=== PATIENT | female | born 1990 | race Caucasian/White ===

== ENCOUNTER → 2021-03-12 09:04 | Outpatient (BNVA) | payer OTHER, SELFPAY | PROVIDERS: PCP Internal Medicine; Visit Provider Obstetrics & Gynecology ==

== ENCOUNTER 2021-09-01 14:00 | Outpatient (REF) | payer OTHER, SELFPAY ==
[2021-09-01 15:02] LABS: Influenza A PCR POSITIVE (Negative); Influenza B PCR NEGATIVE (Negative); Resp Syncy Virus RNA Qual PCR NEGATIVE (Negative); SARS COV2 PCR INHOUSE NEGATIVE (Negative)
== END 2021-09-01 14:01 | disposition home or self-care (01) ==
LOC: HO.LNP 14:00
PROVIDERS: Visit Provider Physician Assistant
DX: Z20.822 Contact with and (suspected) exposure to COVID-19 (principal); R05.9 Cough, unspecified; J32.9 Chronic sinusitis, unspecified
CPT/HCPCS: 0241U

== ENCOUNTER 2022-05-18 09:05 | Outpatient (REF) | payer OTHER, SELFPAY ==
[2022-05-20 16:57] LABS: HPV mRNA E6/E7 rflx Not Detected (Not Detected)
== END 2022-05-18 09:06 | disposition home or self-care (01) ==
LOC: HO.LNP 09:05
PROVIDERS: Visit Provider Obstetrics & Gynecology
DX: Z01.419 Encounter for gynecological examination (general) (routine) without abnormal findings (principal); Z11.51 Encounter for screening for human papillomavirus (HPV)
CPT/HCPCS: 87624; 88142

== ENCOUNTER 2022-06-29 09:04 | Outpatient (REF) | payer OTHER, SELFPAY ==
[2022-06-29 09:18] LABS: MANUAL DIFF FLAG NO
[2022-06-29 09:46] LABS: Basophils Absolute Auto 0.1 X10*3/uL (0.0-0.2); Basophils Percent Auto 0.8 % (0-2); Eosinophils Absolute Auto 0.1 X10*3/uL (0.0-0.4); Eosinophils Percent Auto 1.5 % (0-4); Hematocrit 44.6 % (37.0-47.0); Hemoglobin 14.5 g/dl (12.0-16.0); Imm Gran Abs Auto 0.02 X10*3/uL (0.00-0.03); Imm Gran Pct Auto 0.3 % (0.0-0.4); Lymphocytes Absolute Auto 2.2 X10*3/uL (1.2-4.9); Lymphocytes Percent Auto 28.1 % (20-40); Mean Corpuscular HGB Conc 32.5 g/dl (31.0-35.0); Mean Corpuscular Hemoglobin 30.1 pg (27.0-33.0); Mean Corpuscular Volume 92.5 fL (80.0-98.0); Mean Platelet Volume 10.3 fL (9.4-12.3); Monocytes Absolute Auto 0.6 X10*3/uL (0.1-1.2); Monocytes Percent Auto 7.5 % (2-11); Neutrophils Absolute Auto 4.8 x10*3/uL (2.0-8.3); Neutrophils Percent Auto 61.8 % (45-73); Platelet Count 263 X10*3/uL (160-400); Red Blood Count 4.82 X10*6/uL (4.20-5.50); Red Cell Distribution Width 12.7 % (11.0-16.0); White Blood Count 7.8 X10*3/uL (4.8-10.8)
[2022-06-29 10:15] LABS: Appearance Urine Turbid; Color Urine Yellow; Glucose Urine UA Negative (Negative); Leukocyte Esterase Urine Trace (Negative); Nitrite Urine Negative (Negative); Specific Gravity - Urine 1.025 (1.005-1.025); UMIC TRIGGER UACC YES; Urine Blood Negative (Negative); Urine Ketones Negative (Negative); Urine Protein Trace mg/dL (Neg-Trace)
[2022-06-29 10:29] LABS: Alanine Aminotransferase 7 U/L (0-31); Albumin Level 4.1 g/dL (3.5-5.0); Alkaline Phosphatase 63 U/L (39-117); Anion Gap 13 (12-20); Aspartate Amino Transferase 11 U/L (5-31); Bilirubin Total 0.7 mg/dL (0.0-1.0); Blood Urea Nitrogen 10 mg/dL (9-16); Calcium 9.3 mg/dL (8.4-10.2); Carbon Dioxide 27 mmol/L (22-29); Chloride 103 mmol/L (96-108); Cholesterol 240 mg/dL; Estimated Glomerular Filt Rate > 60; Glucose Fasting 81 mg/dL (60-99); HDL Cholesterol 52 mg/dL; LDL Cholesterol Calculated 163 mg/dl; Potassium 4.3 mmol/L (3.3-5.1); Sodium 139 mmol/L (135-145); Total Protein 6.8 g/dL (6.5-8.0); Triglycerides 129 mg/dL; Troponin-I High Sensitivity < 3.5 ng/L (<3.5-17.0)
[2022-06-29 10:34] LABS: Bacteria Urine 3+ (None Seen); Hyaline Casts Urine 0-2 /LPF (0-2); RBC Urine 0-2 /HPF (0-2); Squamous Epithelial Cell Urine >20 /HPF (0-2); WBC Urine 0-5 /HPF (0-5)
[2022-06-29 10:35] LABS: TSH reflex Free T4 1.41 uIU/mL (0.32-4.0); Vitamin D 25-OH Total 8.2 ng/mL (>30)
== END 2022-06-29 09:05 | disposition home or self-care (01) ==
LOC: HO.LAB 09:04
PROVIDERS: PCP Internal Medicine; Visit Provider Internal Medicine
DX: Z00.00 Encounter for general adult medical examination without abnormal findings (principal); R07.9 Chest pain, unspecified; E78.00 Pure hypercholesterolemia, unspecified; E55.9 Vitamin D deficiency, unspecified
CPT/HCPCS: 36415; 80053; 80061; 81001; 81003; 82306; 84443; 84484; 85025

== ENCOUNTER → 2022-07-20 09:57 | Outpatient (REF) | payer OTHER, SELFPAY ==
--- NOTE | 2022-07-20 10:00 | CA_ITS ---
Acquisition Time: 2022-07-20 10:01:07 Total Exercise Time: 00:05:04 Test Indications: CHEST PAIN Medications: CLONAZAPAM LAMOTRIGINE Protocol: CHELSIE Max HR: 166 BPM 89% of Pred: 186 BPM Max BP: 160/100 mmHG Max Work Load: 7.0 METS Exercise stress test with exercise 5 min 4 sec of Chelsie protocol, achieving 89% MPHR, with reqeust to stop due to sharp pain in left chest area, without arrythmia, with normotensive response to exercise, without EKG changes meeting criteria for ischemia. In recovery her chest discomfort gradually improved. She admits to tenderness to palpation in the area of the discomfort and increased discomfort to that area with lateral raise of left arm. Test reviewed with Dr Bradley. Referred By: Deni Goodman Overread By: NATE OWUSU
== END ==
LOC: HO.CARD 09:57
PROVIDERS: PCP Internal Medicine; Visit Provider Internal Medicine
DX: R07.9 Chest pain, unspecified (principal)
CPT/HCPCS: 93017

== ENCOUNTER 2023-07-06 08:30 | Outpatient (AMB) | payer OTHER, SELFPAY ==
--- NOTE | 2023-07-06 08:40 | MHC.OFFVIS ---
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 No complaints. Last Pap/HPV was negative in 06/01 [facility] Medical History Mixed hyperlipidemia Chronic tonsillar hypertrophy Bulimia Obesity, Class III, BMI 40-49.9 (morbid obesity) Right lower quadrant pain Bipolar depression Morbid obesity GERD (gastroesophageal reflux disease) Surgical History Tubal ligation status History of wisdom tooth extraction History of ventral hernia repair History of section Family History Father Heart failure Mother Ovarian cancer Throat cancer Maternal Grandmother Lung cancer Family/Other Substance use disorder Mental health disorder Paternal Aunt Stomach cancer Social History Household Members: Children Housing: House Alcohol intake: never Patient Tobacco Use Status: Never used Tobacco e-Cigarette/Vaping Use: Never Used Second Hand Smoke Exposure: No service: No Current occupational status: employed Current occupation: [employer] Sexual orientation: Straight/Heterosexual Gender identity: Female Cognitive needs: No Hearing needs: No Vision needs: No Female Reproductive History Menstrual Age of Menarche: 10 Total pregnancies: 4 Full term: 3 Number of Living Children: 3 Ab spontaneous: 1 Date of last pap smear: 05/18/22 Review of Systems Const All systems reviewed & are unremarkable except as noted in HPI and below Card Reports as per HPI Resp Reports as per HPI GI Reports as per HPI and Reports no additional complaints Reports as per HPI Physical Exam Vital Signs: BMI result Body Mass Index 39.6 Const General: cooperative, healthy appearing and comfortable Chest Chest palpation & inspection: normal inspection of the chest and normal palpation of entire chest wall Breast/axilla inspection: normal inspection of the breasts and normal inspection of the axillae Breast/axilla palpation: normal palpation of the breasts, normal palpation of the axillae and no axillary lymphadenopathy Resp Effort & Inspection: normal respiratory effort Auscultation: clear to auscultation bilaterally Percussion: percussion normal Cardio Palpation: normal PMI Rate: regular rate Rhythm: regular rhythm Heart sounds: no murmurs and no rubs Peripheral pulses: Peripheral pulses 2+ throughout GI Inspection: Yes normal to inspection Palpation (GI): Soft to palpation, nontender, no guarding, not rigid and No hepatosplenomegaly present Percussion: Yes normal to percussion Auscultation: normal bowel sounds Rectal Exam - Female: deferred General: Yes bladder normal to palpation External Female Exam: No lesion Speculum Exam - Vagina: normal appearance of the vagina, normal palpation, normal vaginal discharge and not erythematous Speculum Exam - Cervix: normal appearance of the cervix and normal palpation Bimanual exam- vagina & uterus: normal bimanual exam, normal palpation, uterine size normal, bladder normal to palpation, consistency normal and normal palpation Bimanual Exam- Adnexa, other: normal adnexae, no masses and no tenderness Assessment & Plan Assessment & Plan (1) Well woman exam: Code(s): Z01.419 - Encounter for gynecological examination (general) (routine) without abnormal findings Plan: Cotesting not indicated this year. Counseled the patient about the recommended dietary allowance of 1000 mg of Calcium & 600 IU of vitamin D. The patient was instructed to perform monthly self-breast exams and to schedule an annual exam in a year; All questions answered and the patient verbalized understanding. Instructed the patient to schedule annual exam in a year Coding Level of Care Code Est Pt Prev Care 18-39y(22304) Diagnoses Well woman exam Z01.419
[2023-07-06 08:43] VITALS: BP 120/70; BMI 39.6
== END 2023-07-06 09:15 | disposition home or self-care (01) ==
LOC: HO.HWS 08:30
PROVIDERS: PCP Internal Medicine; Visit Provider Obstetrics & Gynecology
DX: Z01.419 Encounter for gynecological examination (general) (routine) without abnormal findings (principal)
CPT/HCPCS: 99395

== ENCOUNTER → 2023-07-06 08:30 | Outpatient (BNVA) | payer OTHER, SELFPAY | PROVIDERS: PCP Internal Medicine; Visit Provider Obstetrics & Gynecology | DX: Z01.419 Encounter for gynecological examination (general) (routine) without abnormal findings (principal) | CPT/HCPCS: 99395 ==

== ENCOUNTER 2024-06-07 08:24 | Outpatient (REF) | payer OTHER, SELFPAY ==
[2024-06-07 11:40] LABS: Influenza A PCR NEGATIVE (Negative); Influenza B PCR POSITIVE (Negative); Resp Syncy Virus RNA Qual PCR NEGATIVE (Negative); SARS COV2 PCR INHOUSE NEGATIVE (Negative)
== END 2024-06-07 08:25 | disposition home or self-care (01) ==
LOC: HO.LNP 08:24
PROVIDERS: Physician Assistant; PCP Internal Medicine; Visit Provider Internal Medicine
DX: J11.1 Influenza due to unidentified influenza virus with other respiratory manifestations (principal)
CPT/HCPCS: 0241U; 99212

== ENCOUNTER 2024-06-07 08:24 | Outpatient (AMB) | payer OTHER, SELFPAY ==
--- NOTE | 2024-06-07 08:53 | MHC.OFFWIV ---
Intake Vital Signs 06/07/24 08:54 Weight 252 lb BP 122/90 H Blood Pressure Location Rt brachial Position Sitting Pulse 106 H Pulse Source Pulse Oximeter Temp 98.8 F Temp Source Oral Pulse Oximetry (%) 97 Oxygen Delivery Method Room Air Intake Visit Reasons: EP-flu symptoms Intake Note: Patient here for head pressure,cough,fever and chills which started last Patient Tobacco Use Status: Never used Tobacco Allergies iodine [IODINE] Allergy (Intermediate, Verified 06/07/24 08:54) HIVES Do you need a note to return to daycare/school/sports/work: Yes HPI HPI Comments History of Present Illness Details She presents to office with flu like symptoms Daughter is sick She started with symptoms on She admits to ST onset and progressed to headache, sinus pressure, running nose + ST with cough Cough produces occasional phlegm + fever this am and took ucinex for this + body aches and fatigue PFSH Medical History Mixed hyperlipidemia Chronic tonsillar hypertrophy Bulimia Obesity, Class III, BMI 40-49.9 (morbid obesity) Right lower quadrant pain Bipolar depression Morbid obesity GERD (gastroesophageal reflux disease) Surgical History Tubal ligation status History of wisdom tooth extraction History of ventral hernia repair History of section Family History Father Heart failure Mother Ovarian cancer Throat cancer Maternal Grandmother Lung cancer Family/Other Substance use disorder Mental health disorder Paternal Aunt Stomach cancer Social History (Updated 07/06/23 @ 08:48 by Anuja Haider CMA) Household Members: Children Housing: House Alcohol intake: never Patient Tobacco Use Status: Never used Tobacco e-Cigarette/Vaping Use: Never Used Second Hand Smoke Exposure: No service: No Current occupational status: employed Current occupation: [employer] Sexual orientation: Straight/Heterosexual Gender identity: Female Cognitive needs: No Hearing needs: No Vision needs: No Female Reproductive History Menstrual Age of Menarche: 10 Review of Systems Const Reports body aches, Reports fatigue, Reports fever(s) and Reports headache(s) Eyes Denies change in vision ENT Reports otalgia, Reports headache(s), Reports nasal congestion, Reports sinus pressure and Reports sore throat Card Denies chest pain, Denies syncope and Denies dyspnea Resp Reports cough and Denies dyspnea GI Denies diarrhea, Reports loose stools, Denies nausea and Denies vomiting Musc Reports myalgias Skin/Breast Denies rash Neuro Denies syncope and Reports headache(s) Endo Reports fatigue Physical Exam Vital Signs: Last Vital Signs Temp 98.8 F 06/07/24 08:54 Pulse 106 H 06/07/24 08:54 BP 122/90 H 06/07/24 08:54 Pulse Ox 97 06/07/24 08:54 Oxygen Delivery Method Room Air 06/07/24 08:54 General: Non-toxic, NAD. Speaking full sentences. Skin: Warm dry throughout Eye: EOMI HENT: Airway patent. Uvula midline. No pharyngeal erythema or edema. No RELIEF CAPTAIN. Bilateral canals clear. R TM + erythema but left TM non-erythematous, non-bulging. No TM perforation or hemotympanum noted. Respiratory: CTA bilaterally. No wheezes, rales or rhonchi Cardiac: RRR. No murmur Neurology: Alert. CN 2-12 grossly intact. No aphasia or facial droop. Gait without abnormality Psych: Good mood and affect Assessment & Plan Assessment & Plan (1) Influenza-like illness: Code(s): J11.1 - Influenza due to unidentified influenza virus with other respiratory manifestations Plan: Patient seen and evaluated. flu, rsv, covid ordered Pt taking mucinex with tylenol. Discussed Ibuprofen q8h to help with headache and body aches Increase fluids, rest, bland diet Patient gave verbal understanding and had no additional questions or concerns at time of discharge All questions answered Orders: Orders SARS-CoV2/FLU/RSV Today J11.1 - Influenza due to unidentified influenza virus with other respiratory manifestations Medications: New ibuprofen 600 mg PO Q8H PRN 14 tabs 0RF pain Coding Level of Care Code Est Pt Level 3 (94316) Diagnoses Influenza-like illness J11.1
[2024-06-07 08:54] VITALS: BP 122/90; PULSE 106; TEMP 37.1; O2SAT 97
== END 2024-06-07 09:13 | disposition home or self-care (01) ==
PROVIDERS: PCP Internal Medicine; Visit Provider Physician Assistant
DX: J11.1 Influenza due to unidentified influenza virus with other respiratory manifestations (principal)

== ENCOUNTER 2024-06-13 17:12 | Outpatient (AMB) | payer OTHER, SELFPAY ==
[2024-06-13 17:13] VITALS: BP 120/82; PULSE 73; O2SAT 99; BMI 35.2
--- NOTE | 2024-06-13 17:13 | A.OFFPC_ITS ---
Vital Signs 06/13/24 17:13 Height 5 ft 7 in Weight 224 lb 8 oz BMI 35.2 BP 120/82 Blood Pressure Location Lt brachial Position Sitting Pulse 73 Pulse Source Pulse Oximeter Pulse Oximetry (%) 99 Oxygen Delivery Method Room Air Intake Visit Reasons: CPE Life Skills Worker Required: No Accompanied by: Self / Same As Patient Allergies iodine [IODINE] Allergy (Intermediate, Verified 06/13/24 17:37) HIVES Medication List - Last Reconciled 06/13/24 by Deni Goodman MD clonazepam 1 tablet 2 to 3 times a day as needed orally; ibuprofen 600 mg PO Q8H PRN Tobacco use date assessed: 06/13/24 Dental Screening Dental Screen Date: 06/13/24 Did you have a dental visit in the last 12 months?: Yes Did you have a dental problem in the last 6 months where you did not have access to dental care?: No Was dental information given to patient?: Patient has dentist HPI CPE HPI Details Patient comes in today for her annual physical examination She has not been back in almost 2 years - was last seen by me on 06/26/2022 Patient states that she feels okay and is just getting over a bout with influenza Relates that she has been experiencing symptoms of cough and congestion for a couple of weeks now and went to the walk-in clinic for evaluation last week and tested positive for influenza B She was negative for COVID and RSV Patient states that she has just been taking OTC cough/cold meds and Ibuprofen PRN for symptomatic relief and that her respiratory symptoms have been slowly improving over the past few days States that she mainly needs to have her Clonazepam Rx refilled at present States that she used to see a psychiatric prescriber at [facility] for her anxiety issues but the clinic closed down their practice late last year and she is presently still trying to find a new psychiatrist or a psych prescriber that accepts her health insurance and just needs our help to refill her medication in the meantime She denies any headaches or dizziness; denies any fever or sore throat Denies any chest pains, no increased shortness of breath although she still has a lingering cough - coughs up minimal clear to whitish phlegm at times No nausea/vomiting, no abdominal pain No change in bowel habits noted She denies any acute urinary symptoms States that she is up-to-date with her annual gynecology exam and Pap smear - has appt scheduled with Dr. Escobedo early next month for her next yearly exam [facility] Medical History (Updated 06/14/24 @ 05:26 by Deni Goodman MD) Obesity (BMI 30-39.9) Mixed hyperlipidemia Chronic tonsillar hypertrophy Bulimia Obesity, Class III, BMI 40-49.9 (morbid obesity) Right lower quadrant pain Bipolar depression Morbid obesity GERD (gastroesophageal reflux disease) Surgical History Tubal ligation status History of wisdom tooth extraction History of ventral hernia repair History of section Family History Father Heart failure Mother Ovarian cancer Throat cancer Maternal Grandmother Lung cancer Family/Other Substance use disorder Mental health disorder Paternal Aunt Stomach cancer Social History Household Members: Children Housing: House Alcohol intake: never Patient Tobacco Use Status: Never used Tobacco e-Cigarette/Vaping Use: Never Used Second Hand Smoke Exposure: No service: No Current occupational status: employed Current occupation: [employer] Sexual orientation: Straight/Heterosexual Gender identity: Female Cognitive needs: No Hearing needs: No Vision needs: No Female Reproductive History Menstrual Age of Menarche: 10 Questionnaire PHQ-9 Over the last 2 weeks, how often have you been bothered by any of the following problems? 1. Little interest or pleasure in doing things: more than half the days 2. Feeling down, depressed, or hopeless: more than half the days 3. Trouble falling or staying asleep, or sleeping too much: several days 4. Feeling tired or having little energy: more than half the days 5. Poor appetite or overeating: several days 6. Feeling bad about yourself - or that you are a failure or have let yourself or your family down: several days 7. Trouble concentrating on things, such as reading the newspaper or watching television: more than half the days 8. Moving or speaking so slowly that other people could have noticed. Or the opposite - being so fidgety or restless that you have been moving around a lot more than usual: not at all 9. Thoughts that you would be better off or of hurting yourself in some way: several days Total score: 12 Depression Screening Interpretation: Positive Depression Screening Follow-up: Existing condition and In treatment Depression Screening Done: Yes 94304 - PHQ-9 Billing: Yes Source: Developed by Drs. Kee Mcintyre, Kaleigh Tripp, Luis Guillen and colleagues, with an educational jere from [employer]. Thrive Questionnaire Date Thrive assessed: 06/13/24 I am a: Patient What is your living situation today?: I have a steady place to live Within the past 12 months, did the food you bought not last and you didn't have the money to get more?: Never true Within the past 12 months, did you worry whether your food would run out before you got money to buy more?: Never true Do you have trouble paying for medicines?: No Do you have trouble getting transportation to medical appointments?: No Do you have trouble paying your heating and electricity bill?: No Do you have trouble taking care of your child, family member or friend?: No Do you have trouble with day-to-day activities such as bathing, preparing meals, shopping, managing finances, etc.?: No Are you currently unemployed and looking for a job?: Yes Are you interested in more education?: I choose not to answer this question Please select the resources that you would like help with: None Currently or been in a relationship where the following occur: I choose not to answer THRIVE Score: 0 AUDIT C Alcohol Use Questionnaire (AUDIT-C) 1. How often do you have a drink containing alcohol?: Never 3. How often do you have six or more drinks on one occasion?: Never Total Score: 0 Score Reviewed/Action Taken: Yes HUNTER-7 AMB Questionnaire HUNTER-7 Date HUNTER - 7 assessed: 06/13/24 Feeling nervous, anxious, or on edge: 3 = Nearly every day Not being able to stop or control worryin = Nearly every day Worrying too much about different things: 3 = Nearly every day Trouble relaxin = More than half the days Being so restless that it is hard to sit still: 0 = Not at all Becoming easily annoyed or irritable: 3 = Nearly every day Feeling afraid as if something awful might happen: 3 = Nearly every day Total HUNTER-7 score (0-4 normal; 5-9 mild; 10-14 moderate; 15-21 severe): 17 Source: Developed by Drs. Kee Mcintyre, Kaleigh Tripp, Luis Guillen and colleagues, with an educational jere from [employer]. Review of Systems Const Denies chills, Denies fatigue, Denies fever(s), Denies headache(s) and Denies malaise Eyes Denies blurry vision, Denies change in vision, Denies irritation and Denies itchy eyes ENT Denies dysphagia, Denies dizziness, Denies otalgia, Denies headache(s), Reports nasal congestion (mild - improving), Denies neck pain, Denies odynophagia, Denies sinus pain and Denies sore throat Card Denies chest pain, Denies rapid heart rate, Denies irregular heart rhythm, Denies palpitations and Denies dyspnea Resp Reports chest congestion (mild), Reports cough (on and off; coughs up minimal clear to whitish phlegm at times), Denies dyspnea and Denies wheezing GI Denies abdominal pain, Denies bloating, Denies constipation, Denies dysphagia, Denies heartburn, Denies diarrhea, Denies nausea, Denies odynophagia and Denies vomiting Denies hematuria, Denies urinary frequency, Denies dysuria, Denies urinary incontinence and Denies urinary urgency Musc Denies back pain, Denies arthralgias, Denies joint swelling, Denies muscle weakness and Denies neck pain Skin/Breast Denies breast pain, Denies breast mass, Denies change in pigmentation, Denies lesions, Denies rash and Denies unusual bruising Neuro Denies dizziness, Denies headache(s) and Denies paresthesias Psych Reports anxiety (Rx helping) and Denies depression Endo Denies fatigue and Denies palpitations Manuel/Lymph Denies easy bruising Aller/Immun Denies itchy eyes and Denies wheezing Physical exam (Primary Care) Vital Signs: Last Vital Signs Pulse 73 06/13/24 17:13 BP 120/82 06/13/24 17:13 Pulse Ox 99 06/13/24 17:13 Oxygen Delivery Method Room Air 06/13/24 17:13 BMI result Body Mass Index 35.2 Tobacco/Smoking Status: Tobacco use Status Tobacco use date assessed 06/13/24 06/13/24 17:17 Patient Tobacco Use Status Never used Tobacco 06/13/24 17:17 Tobacco use type 07/06/23 09:18 e-Cigarette/Vaping Use Never Used 06/13/24 17:17 PHQ-9: PHQ-9 Score PHQ-9: Total score 12 06/13/24 17:38 Depression Screening Interpretation: Positive Depression Screening Follow-up: Existing condition and In treatment Thrive Assessment: Date of Thrive Assessment Date Thrive assessed 06/13/24 06/13/24 17:17 Currently or been in a relationship where the following occur: I choose not to answer Const General: no acute distress, alert and awake Orientation/consciousness: patient oriented x3 HENMT Head: Yes normocephalic and Yes atraumatic Ears: external ears normal, TM's normal bilaterally and EAC's normal General nose exam: No nasal discharge present Face and sinus: Yes normal facial exam and Yes sinuses nontender Teeth and gingiva: dentition normal Throat: Yes posterior oropharynx normal and Yes tonsils normal (no TP congestion) Eyes Eyelids: Yes eyelids normal Conjunctivae: conjunctivae normal Pupils: Equal, round and reactive pupils present EOM: EOMs intact bilaterally Neck Neck: Yes supple and No lymphadenopathy Thyroid: Thyroid normal Resp Auscultation: no crackles, no rales, rhonchi (occasional) lower bilaterally and no wheezes Cardio Rate: regular rate Rhythm: regular rhythm Heart sounds: no murmurs GI Palpation (GI): Soft to palpation, nontender and No hepatosplenomegaly present Auscultation: normal bowel sounds General: Yes no CVA tenderness Back/Spine/Pelvis Back: no CVA tenderness Thoracic/Lumbar Spine: thoracic and lumbar spine normal to inspection Skin Lesions: no lesions Rashes: no rashes Neuro General: patient oriented x3, moves all extremities, no focal motor deficits and CN's II-XI intact bilaterally Cranial nerves: Yes Equal, round and reactive pupils present Cognition (Neuro): normal cognition Gait exam (Neuro): Normal gait present Extrem General: Yes no clubbing, cyanosis or edema Coding Level of Care Code Est Pt Prev Care 18-39y(17602) Diagnoses Annual physical exam Z00.00 Mixed hyperlipidemia E78.2 Gastroesophageal reflux disease, unspecified whether esophagitis present K21.9 Esophagitis presence: esophagitis presence not specified Bipolar depression F31.9 Obesity (BMI 30-39.9) E66.9 Additional Codes PHQ-9 - 11122 - PHQ-9 Billing: Yes ([id number]) Assessment & Plan Assessment & Plan (1) Annual physical exam: Code(s): Z00.00 - Encounter for general adult medical examination without abnormal findings Category: Medical Plan: Check labs Patient is up-to-date with her yearly gynecology exam and pap smear - has her next appointment scheduled with Dr. Escobedo in early July 2024 (2) Mixed hyperlipidemia: Code(s): E78.2 - Mixed hyperlipidemia Category: Medical Plan: Reinforced low cholesterol diet Will recheck her fasting lipids GAY for follow up (3) GERD (gastroesophageal reflux disease): Code(s): K21.9 - Gastro-esophageal reflux disease without esophagitis Category: Medical Qualifiers: Esophagitis presence: esophagitis presence not specified Qualified Code(s): K21.9 - Gastro-esophageal reflux disease without esophagitis Plan: Dietary restrictions reinforced Patient used to take Omeprazole 20 mg QD but has not needed to take Rx in quite some time now (4) Bipolar depression: Code(s): F31.9 - Bipolar disorder, unspecified Category: Medical Plan: Patient used to take Lamotrigine 400 mg Q AM and Clonazepam 1 mg 2 to 3 times a day as needed but is now only on Clonazepam 1 mg BID PRN - Rx refilled She used to go to [facility] for psychiatry follow up but the practice closed down late last year and she is currently still trying to get established with a psychiatrist or psychiatric prescriber who accepts her health insurance Have advised patient that I will be happy to help her with her prescription until she is able to start seeing her new psychiatrist (5) Obesity (BMI 30-39.9): Code(s): E66.9 - Obesity, unspecified Category: Medical Plan: Reinforced diet/exercise as tolerated/lose weight - she has been able to lose over 30 pounds since we last saw her a couple of years ago Plan Follow up in 6 months Orders: Orders Complete Blood Count Auto Diff 06/13/24 D64.9 - Anemia, unspecified, Z00.00 - Encounter for general adult medical examination without abnormal findings Comprehensive [place]. Panel Fast 06/13/24 E78.00 - Pure hypercholesterolemia, unspecified, Z00.00 - Encounter for general adult medical examination without abnormal findings UA CC w/rflx Micro + Cult 06/13/24 R30.0 - Dysuria, Z00.00 - Encounter for general adult medical examination without abnormal findings Lipid Panel 06/13/24 E78.00 - Pure hypercholesterolemia, unspecified, Z00.00 - Encounter for general adult medical examination without abnormal findings TSH reflex Free T4 06/13/24 E78.00 - Pure hypercholesterolemia, unspecified, Z00.00 - Encounter for general adult medical examination without abnormal findings Vitamin D 25-OH Total 06/13/24 E55.9 - Vitamin D deficiency, unspecified, Z00.00 - Encounter for general adult medical examination without abnormal findings Medications: Changed From clonazepam 1 tablet 2 to 3 times a day as needed orally; To clonazepam 1 mg PO BID PRN 60 tabs 0RF anxiety
== END 2024-06-13 17:47 | disposition home or self-care (01) ==
PROVIDERS: PCP Internal Medicine; Visit Provider Internal Medicine
DX: Z00.00 Encounter for general adult medical examination without abnormal findings (principal); F31.9 Bipolar disorder, unspecified; E66.9 Obesity, unspecified; Z68.35 Body mass index [BMI] 35.0-35.9, adult; E78.2 Mixed hyperlipidemia; K21.9 Gastro-esophageal reflux disease without esophagitis

== ENCOUNTER → 2024-06-13 17:12 | Outpatient (BNVA) | payer OTHER, SELFPAY | PROVIDERS: PCP Internal Medicine; Visit Provider Internal Medicine | DX: Z00.00 Encounter for general adult medical examination without abnormal findings (principal); E78.2 Mixed hyperlipidemia; K21.9 Gastro-esophageal reflux disease without esophagitis; F41.9 Anxiety disorder, unspecified; E66.9 Obesity, unspecified; Z68.35 Body mass index [BMI] 35.0-35.9, adult; Z71.3 Dietary counseling and surveillance | CPT/HCPCS: 96127; 99395 ==

== ENCOUNTER 2024-06-21 08:43 | Outpatient (REF) | payer OTHER, SELFPAY ==
[2024-06-21 10:36] LABS: Appearance Urine Clear; Color Urine Yellow; Glucose Urine UA Negative (Negative); Leukocyte Esterase Urine Negative (Negative); Nitrite Urine Negative (Negative); Specific Gravity - Urine 1.015 (1.005-1.025); Urine Blood Negative (Negative); Urine Ketones Negative (Negative); Urine Protein Negative (Neg-Trace)
[2024-06-21 10:45] LABS: MANUAL DIFF FLAG NO
[2024-06-21 10:53] LABS: Basophils Absolute Auto 0.1 X10*3/uL (0.0-0.2); Basophils Percent Auto 0.5 % (0-2); Eosinophils Absolute Auto 0.1 X10*3/uL (0.0-0.4); Eosinophils Percent Auto 1.1 % (0-4); Hematocrit 45.3 % (37.0-47.0); Hemoglobin 15.2 g/dl (12.0-16.0); Imm Gran Abs Auto 0.04 X10*3/uL (0.00-0.03); Imm Gran Pct Auto 0.4 % (0.0-0.4); Lymphocytes Absolute Auto 2.5 X10*3/uL (1.2-4.9); Lymphocytes Percent Auto 24.8 % (20-40); Mean Corpuscular HGB Conc 33.6 g/dl (31.0-35.0); Mean Corpuscular Hemoglobin 30.8 pg (27.0-33.0); Mean Corpuscular Volume 91.7 fL (80.0-98.0); Mean Platelet Volume 10.9 fL (9.4-12.3); Monocytes Absolute Auto 0.6 X10*3/uL (0.1-1.2); Monocytes Percent Auto 6.4 % (2-11); Neutrophils Absolute Auto 6.6 x10*3/uL (2.0-8.3); Neutrophils Percent Auto 66.8 % (45-73); Platelet Count 295 X10*3/uL (160-400); Red Blood Count 4.94 X10*6/uL (4.20-5.50); Red Cell Distribution Width 12.6 % (11.0-16.0); White Blood Count 9.9 X10*3/uL (4.8-10.8)
[2024-06-21 11:33] LABS: Alanine Aminotransferase 8 U/L (0-31); Albumin Level 4.1 g/dL (3.5-5.0); Alkaline Phosphatase 58 U/L (39-117); Anion Gap 11 (12-20); Aspartate Amino Transferase 15 U/L (5-31); Bilirubin Total 0.6 mg/dL (0.0-1.0); Blood Urea Nitrogen 11 mg/dL (9-16); Calcium 8.9 mg/dL (8.4-10.2); Carbon Dioxide 24 mmol/L (22-29); Chloride 108 mmol/L (96-108); Cholesterol 187 mg/dL (<200); Estimated Glomerular Filt Rate > 60; Glucose Fasting 85 mg/dL (60-99); HDL Cholesterol 46 mg/dL (>40); LDL Cholesterol Calculated 121 mg/dL (<100); Potassium 3.8 mmol/L (3.3-5.1); Sodium 139 mmol/L (135-145); TSH reflex Free T4 1.29 uIU/mL (0.32-4.0); Total Protein 7.9 g/dL (6.5-8.0); Triglycerides 101 mg/dL (<150); Vitamin D 25-OH Total 21.9 ng/mL (>30)
== END 2024-06-21 08:44 | disposition home or self-care (01) ==
LOC: HO.HMGCLDS 08:43
PROVIDERS: PCP Internal Medicine; Visit Provider Internal Medicine
DX: Z00.00 Encounter for general adult medical examination without abnormal findings (principal); R30.0 Dysuria; D64.9 Anemia, unspecified; E78.00 Pure hypercholesterolemia, unspecified; E55.9 Vitamin D deficiency, unspecified
CPT/HCPCS: 36415; 80053; 80061; 81003; 82306; 84443; 85025

== ENCOUNTER 2024-12-11 10:51 | Outpatient (AMB) | payer OTHER, SELFPAY ==
[2024-12-11 10:53] VITALS: BP 124/82; PULSE 84; O2SAT 99; BMI 38.8
--- NOTE | 2024-12-11 10:53 | A.OFFPC_ITS ---
Vital Signs 12/11/24 10:53 Height 5 ft 7 in Weight 248 lb BMI 38.8 BP 124/82 Blood Pressure Location Lt brachial Position Sitting Pulse 84 Pulse Source Pulse Oximeter Pulse Oximetry (%) 99 Oxygen Delivery Method Room Air Intake Visit Reasons: 6 Months Sort Line Required: No Accompanied by: Self / Same As Patient Allergies iodine (IODINE) Allergy (Intermediate, Verified 12/11/24 11:11) HIVES Medication List - Last Reconciled 12/11/24 by Deni Goodman MD clonazepam 1 mg PO BID PRN ibuprofen 600 mg PO Q8H PRN Tobacco use date assessed: 12/11/24 Dental Screening Dental Screen Date: 12/11/24 Did you have a dental visit in the last 12 months?: Yes Did you have a dental problem in the last 6 months where you did not have access to dental care?: No Was dental information given to patient?: Patient has dentist HPI 6 Months 2 HPI Details Patient comes in today for her follow up visit Reports that she has been experiencing occasional dizzy spells / bouts of vertigo lately (occurring about 2 to 3 times a week), that seem to be triggered mostly when she tries to get out of bed too quickly Recalls that she felt very dizzy suddenly one time about a week ago when she got up and fell back onto the bed and hit her head on a table in the process States that she did not pass out from the head trauma and that she felt okay once her dizziness subsided She also reports experiencing on and off episodes of palpitations over the past few weeks - describes her symptoms as a sensation of her heart racing and sometimes feel like her heart is going to jump out of her chest Recalls also experiencing some symptoms of chest pressure / discomfort when these occur, which she states she has about 3 times a week She had a negative stress test done back in 2022 She denies any headaches Denies any increased SOB No nausea/vomiting, no abdominal pain No change in bowel habits noted Needs her Clonzazepam Rx refilled today Would also like to know how her labs done earlier this year came out [facility] Medical History Obesity (BMI 30-39.9) Mixed hyperlipidemia Chronic tonsillar hypertrophy Bulimia Obesity, Class III, BMI 40-49.9 (morbid obesity) Right lower quadrant pain Bipolar depression Morbid obesity GERD (gastroesophageal reflux disease) Surgical History Tubal ligation status History of wisdom tooth extraction History of ventral hernia repair History of section Family History Father Heart failure Mother Ovarian cancer Throat cancer Maternal Grandmother Lung cancer Family/Other Substance use disorder Mental health disorder Paternal Aunt Stomach cancer Social History Household Members: Children Housing: House Alcohol intake: never Patient Tobacco Use Status: Never used Tobacco e-Cigarette/Vaping Use: Never Used Second Hand Smoke Exposure: No service: No Current occupational status: employed Current occupation: [employer] Sexual orientation: Straight/Heterosexual Gender identity: Female Cognitive needs: No Hearing needs: No Vision needs: No Female Reproductive History Menstrual Age of Menarche: 10 Questionnaire PHQ-9 Over the last 2 weeks, how often have you been bothered by any of the following problems? 1. Little interest or pleasure in doing things: more than half the days 2. Feeling down, depressed, or hopeless: more than half the days 3. Trouble falling or staying asleep, or sleeping too much: several days 4. Feeling tired or having little energy: more than half the days 5. Poor appetite or overeating: several days 6. Feeling bad about yourself - or that you are a failure or have let yourself or your family down: several days 7. Trouble concentrating on things, such as reading the newspaper or watching television: more than half the days 8. Moving or speaking so slowly that other people could have noticed. Or the opposite - being so fidgety or restless that you have been moving around a lot more than usual: not at all 9. Thoughts that you would be better off or of hurting yourself in some way: several days Total score: 12 Depression Screening Interpretation: Positive Depression Screening Follow-up: Existing condition and In treatment Depression Screening Done: Yes 27604 - PHQ-9 Billing: Yes Source: Developed by Drs. Kee Mcintyre, Kaleigh Tripp, Luis Guillen and colleagues, with an educational jere from [email or web address]. Thrive Questionnaire Date Thrive assessed: 12/11/24 I am a: Patient What is your living situation today?: I have a steady place to live Within the past 12 months, did the food you bought not last and you didn't have the money to get more?: Never true Within the past 12 months, did you worry whether your food would run out before you got money to buy more?: Never true Do you have trouble paying for medicines?: No Do you have trouble getting transportation to medical appointments?: No Do you have trouble paying your heating and electricity bill?: No Do you have trouble taking care of your child, family member or friend?: No Do you have trouble with day-to-day activities such as bathing, preparing meals, shopping, managing finances, etc.?: No Are you currently unemployed and looking for a job?: Yes Are you interested in more education?: I choose not to answer this question Please select the resources that you would like help with: None Currently or been in a relationship where the following occur: I choose not to answer THRIVE Score: 0 AUDIT C Alcohol Use Questionnaire (AUDIT-C) 1. How often do you have a drink containing alcohol?: Never 3. How often do you have six or more drinks on one occasion?: Never Total Score: 0 Score Reviewed/Action Taken: Yes HUNTER-7 AMB Questionnaire HUNTER-7 Date HUNTER - 7 assessed: 12/11/24 Feeling nervous, anxious, or on edge: 3 = Nearly every day Not being able to stop or control worryin = Nearly every day Worrying too much about different things: 3 = Nearly every day Trouble relaxin = More than half the days Being so restless that it is hard to sit still: 0 = Not at all Becoming easily annoyed or irritable: 3 = Nearly every day Feeling afraid as if something awful might happen: 3 = Nearly every day Total HUNTER-7 score (0-4 normal; 5-9 mild; 10-14 moderate; 15-21 severe): 17 Source: Developed by Drs. Kee Mcintyre, Kaleigh Tripp, Luis Guillen and colleagues, with an educational jere from [email or web address]. Review of Systems Const Denies chills, Denies fatigue, Denies fever(s) and Denies headache(s) ENT Denies dysphagia, Reports dizziness (on and off - feels like bouts of vertigo (see HPI)), Denies otalgia, Denies headache(s), Denies neck pain, Denies odynophagia and Denies sore throat Card Reports chest pain (more of discomfort/pressure usually in association with palpitations), Reports palpitations (on and off - see HPI) and Denies dyspnea Resp Denies chest congestion, Denies cough and Denies dyspnea GI Denies abdominal pain, Denies constipation, Denies dysphagia, Denies heartburn, Denies diarrhea, Denies nausea, Denies odynophagia and Denies vomiting Denies difficulty voiding, Denies nocturia, Denies dysuria and Denies urinary urgency Musc Denies back pain, Denies arthralgias and Denies neck pain Skin/Breast Denies rash Neuro Reports dizziness (on and off - feels like bouts of vertigo (see HPI)), Denies headache(s) and Denies paresthesias Psych Reports anxiety (Rx helping) and Denies depression Endo Denies fatigue and Reports palpitations (on and off - see HPI) Manuel/Lymph Denies easy bruising Physical exam (Primary Care) Vital Signs: Last Vital Signs Pulse 84 12/11/24 10:53 BP 124/82 12/11/24 10:53 Pulse Ox 99 12/11/24 10:53 Oxygen Delivery Method Room Air 12/11/24 10:53 BMI result Body Mass Index 38.8 Tobacco/Smoking Status: Tobacco use Status Tobacco use date assessed 12/11/24 12/11/24 10:59 Patient Tobacco Use Status Never used Tobacco 12/11/24 10:59 Tobacco use type 07/06/23 09:18 e-Cigarette/Vaping Use Never Used 12/11/24 10:59 PHQ-9: PHQ-9 Score PHQ-9: Total score 12 12/11/24 10:59 Depression Screening Interpretation: Positive Depression Screening Follow-up: Existing condition and In treatment Thrive Assessment: Date of Thrive Assessment Date Thrive assessed 12/11/24 12/11/24 10:59 Currently or been in a relationship where the following occur: I choose not to answer Const General: no acute distress and alert HENMT Ears: TM's normal bilaterally and EAC's normal Throat: Yes posterior oropharynx normal and Yes tonsils normal (no TP congestion) Neck Neck: Yes supple and No lymphadenopathy Thyroid: Thyroid normal Resp Auscultation: clear to auscultation bilaterally, no crackles, no rales and no wheezes Cardio Rate: regular rate Rhythm: regular rhythm Heart sounds: no murmurs GI Palpation (GI): Soft to palpation and nontender Auscultation: normal bowel sounds General: Yes no CVA tenderness Back/Spine/Pelvis Back: no CVA tenderness Thoracic/Lumbar Spine: No lumbar spinal tenderness Skin Rashes: no rashes Extrem General: Yes no clubbing, cyanosis or edema Results Reviewed Results Reviewed: Laboratory Tests 06/21/24 08:46 WBC 9.9 Hgb 15.2 Hct 45.3 Plt Count 295 Sodium 139 Potassium 3.8 Creatinine 0.67 Estimated GFR > 60 Fasting Glucose 85 Calcium 8.9 AST 15 ALT 8 Triglycerides 101 Cholesterol 187 LDL Cholesterol, Calc 121 H HDL Cholesterol 46 25-OH Vitamin D Total 21.9 L TSH 1.29 Ur Specific [place] 1.015 Urine Protein Negative Urine Glucose (UA) Negative Urine Blood Negative Urine Nitrite Negative Ur Leukocyte Esterase Negative Coding Level of Care Code Est Pt Level 4 (88600) Diagnoses Intermittent palpitations R00.2 Chest pain, unspecified type R07.9 Chest pain type: unspecified Dizziness R42 Mixed hyperlipidemia E78.2 Gastroesophageal reflux disease, unspecified whether esophagitis present K21.9 Esophagitis presence: esophagitis presence not specified Bipolar depression F31.9 Obesity (BMI 30-39.9) E66.9 Additional Codes PHQ-9 - 10169 - PHQ-9 Billing: Yes ([id number]) Assessment & Plan Assessment & Plan (1) Intermittent palpitations: Code(s): R00.2 - Palpitations Category: Medical Plan: Will send patient for a 7-day Holter monitor for further evaluation Have advised patient that if her Holter monitor is unrevealing, will likely consider referring her back to cardiology for further evaluation and management (2) Chest pain: Code(s): R07.9 - Chest pain, unspecified Category: Medical Qualifiers: Chest pain type: unspecified Qualified Code(s): R07.9 - Chest pain, unspecified Plan: This may be related to her recent complaints/symptoms of palpitations or could be related to her anxiety Patient had cardiac stress testing done a couple of years ago (2022) that came out normal (3) Dizziness: Code(s): R42 - Dizziness and giddiness Category: Medical Plan: Discussed with patient that her on and off dizziness, based on the description of her symptoms, are likely due to positional vertigo She is not on any Rx for blood pressure so orthostasis is less likely Due to the sporadic nature of her symptoms, advised that referring her for canalith positioning with physical therapy at this time would not be appropriate and that there are really no proven or effective Rx for this condition Have advised her to try to avoid rapid changes in position for now and hopefully if she can avoid triggering these for a period of time, these would eventually subside completely but advised that if she feels that these are progressively getting worse or occurring more and more often than before, then we may need to consider referring her to ENT (4) Mixed hyperlipidemia: Code(s): E78.2 - Mixed hyperlipidemia Category: Medical Plan: Results of her labs done back in June 2024 reviewed and discussed with patient - her cholesterol levels have improved significantly from previous Reinforced low cholesterol diet (5) GERD (gastroesophageal reflux disease): Code(s): K21.9 - Gastro-esophageal reflux disease without esophagitis Category: Medical Qualifiers: Esophagitis presence: esophagitis presence not specified Qualified Code(s): K21.9 - Gastro-esophageal reflux disease without esophagitis Plan: Dietary restrictions reinforced Patient used to take Omeprazole 20 mg QD but has not needed to take Rx in quite some time now (6) Bipolar depression: Code(s): F31.9 - Bipolar disorder, unspecified Category: Medical Plan: Patient used to take Lamotrigine 400 mg Q AM and Clonazepam 1 mg 2 to 3 times a day as needed but is now only on Clonazepam 1 mg BID PRN - Rx refilled She used to go to [facility] for psychiatry follow up but the practice closed down late last year and she is currently still trying to get established with a psychiatrist or psychiatric prescriber who accepts her health insurance Have advised patient that I will be happy to help her with her prescription until she is able to start seeing and get established with her new psychiatrist (7) Obesity (BMI 30-39.9): Code(s): E66.9 - Obesity, unspecified Category: Medical Plan: Reinforced diet/exercise as tolerated/lose weight Plan Follow up in 3 months Orders: Orders ECG 7 day holter monitor Today R00.2 - Palpitations, R07.89 - Other chest pain Medications: Refilled clonazepam 1 mg PO BID PRN 60 tabs 0RF anxiety
== END 2024-12-11 11:26 | disposition home or self-care (01) ==
LOC: HO.HMCH 10:51
PROVIDERS: PCP Internal Medicine; Visit Provider Internal Medicine
DX: R00.2 Palpitations (principal); F31.9 Bipolar disorder, unspecified; E66.9 Obesity, unspecified; Z68.38 Body mass index [BMI] 38.0-38.9, adult; R07.9 Chest pain, unspecified; R42 Dizziness and giddiness; E78.2 Mixed hyperlipidemia; K21.9 Gastro-esophageal reflux disease without esophagitis

== ENCOUNTER → 2024-12-11 10:51 | Outpatient (BNVA) | payer OTHER, SELFPAY | PROVIDERS: PCP Internal Medicine; Visit Provider Internal Medicine | DX: R00.2 Palpitations (principal); R07.9 Chest pain, unspecified; R42 Dizziness and giddiness; E78.2 Mixed hyperlipidemia; K21.9 Gastro-esophageal reflux disease without esophagitis; F31.9 Bipolar disorder, unspecified; E66.9 Obesity, unspecified; Z68.38 Body mass index [BMI] 38.0-38.9, adult; Z79.899 Other long term (current) drug therapy; Z13.31 Encounter for screening for depression; Z13.39 Encounter for screening examination for other mental health and behavioral disorders | CPT/HCPCS: 96127; 99212 ==

== ENCOUNTER → 2025-01-10 08:58 | Outpatient (REF) | payer OTHER, SELFPAY ==
--- NOTE | 2025-01-10 09:01 | HM_ITS ---
* Total monitoring time 7 days. * Underlying rhythm is sinus with an average rate of 75/Min. * No significant ectopy. * No sustained tachyarrhythmias. * No significant pauses or high-grade AV blocks. * Patient markers associated with sinus rhythm. * Chest tightness, pressure in patient diary associated with sinus rhythm and sinus tachycardia. MTDD
== END ==
LOC: HO.CARD 08:58
PROVIDERS: PCP Internal Medicine; Visit Provider Internal Medicine
DX: R00.2 Palpitations (principal); R07.89 Other chest pain
CPT/HCPCS: 93242

== ENCOUNTER → 2025-01-10 09:01 | Outpatient (BNV) | payer OTHER, SELFPAY | PROVIDERS: PCP Internal Medicine; Visit Provider Internal Medicine | DX: R00.0 Tachycardia, unspecified (principal) | CPT/HCPCS: 93244 ==

== ENCOUNTER 2025-03-12 13:52 | Outpatient (AMB) | payer OTHER, SELFPAY ==
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
[2025-03-12 14:05] VITALS: BP 122/86; BMI 40.7
== END 2025-03-12 15:07 | disposition home or self-care (01) ==
LOC: HO.HWS 13:53
PROVIDERS: PCP Internal Medicine; Visit Provider Advanced Practice Midwife
DX: Z01.419 Encounter for gynecological examination (general) (routine) without abnormal findings (principal); F31.9 Bipolar disorder, unspecified; E66.01 Morbid (severe) obesity due to excess calories; Z68.41 Body mass index [BMI] 40.0-44.9, adult
CPT/HCPCS: 99395; 99459

== ENCOUNTER → 2025-03-12 13:52 | Outpatient (BNVA) | payer OTHER, SELFPAY | PROVIDERS: PCP Internal Medicine; Visit Provider Advanced Practice Midwife | DX: Z01.419 Encounter for gynecological examination (general) (routine) without abnormal findings (principal); E66.813 Obesity, class 3; F31.9 Bipolar disorder, unspecified; Z68.41 Body mass index [BMI] 40.0-44.9, adult | CPT/HCPCS: 99395 ==

== ENCOUNTER 2025-03-23 10:11 | Outpatient (AMB) | payer OTHER, SELFPAY ==
[2025-03-23 10:22] VITALS: BP 120/84; PULSE 66; O2SAT 99
--- NOTE | 2025-03-23 10:22 | MHC.PC.OV ---
Vital Signs 03/23/25 10:22 Height 5 ft 7 in BMI Reason not done Patient refused/unable BP 120/84 Blood Pressure Location Lt brachial Position Sitting Pulse 66 Pulse Source Pulse Oximeter Pulse Oximetry (%) 99 Oxygen Delivery Method Room Air Intake Visit Reasons: palpitations Strategic Planning Manager Required: No Accompanied by: Self / Same As Patient Allergies iodine (IODINE) Allergy (Intermediate, Verified 03/23/25 10:56) HIVES Medication List - Last Reconciled 03/23/25 by Deni Goodman MD clonazepam 1 mg PO BID PRN ibuprofen 600 mg PO Q8H PRN Tobacco use date assessed: 03/23/25 Dental Screening Dental Screen Date: 03/23/25 Did you have a dental visit in the last 12 months?: Yes Did you have a dental problem in the last 6 months where you did not have access to dental care?: No Was dental information given to patient?: Patient has dentist HPI palpitations HPI Details Patient comes in today for her follow up visit States that she is still experiencing on and off episodes of palpitations but they have not been occurring as often as they used to lately She recalls also experiencing some symptoms of chest pressure / discomfort when her palpitations occur and had a negative stress test done a couple of years ago sometime in 2022 Would like to know how her recent Holter monitor done (in January 2025) came out She denies any headaches and denies any dizziness lately Denies any increased SOB No nausea/vomiting, no abdominal pain No change in bowel habits noted Adds that she continues to experience increased symptoms of anxiety and depression and recently lost her job as a result of these She used to take Lamictal and Aripiprazole but has not been on these medications since the beginning of the year as her previous psychiatrist and therapist office closed abruptly late last year and she has not been able to get in to see a psychiatric prescriber yet States that she was just recently placed on a waiting list to see a psychiatrist but was advised that they do not really know exactly how long it will take for her to be able to get in to see one yet She was also advised at her recent gynecology appointment that she may be going through premature menopause at this time (recalls that her mother had a hysterectomy done when she was 33 y/o due to premature menopause) and was advised that there is not really much that can be done if she is indeed starting to go into menopause at this time [facility] Medical History Obesity (BMI 30-39.9) Mixed hyperlipidemia Chronic tonsillar hypertrophy Bulimia Obesity, Class III, BMI 40-49.9 (morbid obesity) Right lower quadrant pain Bipolar depression Morbid obesity GERD (gastroesophageal reflux disease) Surgical History Tubal ligation status History of wisdom tooth extraction History of ventral hernia repair History of section Family History Father Heart failure Mother Ovarian cancer Throat cancer Maternal Grandmother Lung cancer Family/Other Substance use disorder Mental health disorder Paternal Aunt Stomach cancer Social History Household Members: Children Housing: House Alcohol intake: never Patient Tobacco Use Status: Never used Tobacco e-Cigarette/Vaping Use: Never Used Second Hand Smoke Exposure: No service: No Current occupational status: employed Current occupation: [employer] Sexual orientation: Straight/Heterosexual Gender identity: Female Cognitive needs: No Hearing needs: No Vision needs: No Female Reproductive History Menstrual Age of Menarche: 10 Questionnaire PHQ-9 Over the last 2 weeks, how often have you been bothered by any of the following problems? 1. Little interest or pleasure in doing things: more than half the days 2. Feeling down, depressed, or hopeless: more than half the days 3. Trouble falling or staying asleep, or sleeping too much: several days 4. Feeling tired or having little energy: more than half the days 5. Poor appetite or overeating: several days 6. Feeling bad about yourself - or that you are a failure or have let yourself or your family down: several days 7. Trouble concentrating on things, such as reading the newspaper or watching television: more than half the days 8. Moving or speaking so slowly that other people could have noticed. Or the opposite - being so fidgety or restless that you have been moving around a lot more than usual: not at all 9. Thoughts that you would be better off or of hurting yourself in some way: several days Total score: 12 Depression Screening Interpretation: Positive Depression Screening Follow-up: Existing condition, In treatment and Community Mental Health Worker F/U Depression Screening Done: Yes 71868 - PHQ-9 Billing: Yes Source: Developed by Drs. Kee Mcintyre, Kaleigh Tripp, Luis Guillen and colleagues, with an educational jere from [employer]. Thrive Questionnaire Date Thrive assessed: 03/23/25 I am a: Patient What is your living situation today?: I have a steady place to live Within the past 12 months, did the food you bought not last and you didn't have the money to get more?: Never true Within the past 12 months, did you worry whether your food would run out before you got money to buy more?: Never true Do you have trouble paying for medicines?: No Do you have trouble getting transportation to medical appointments?: No Do you have trouble paying your heating and electricity bill?: No Do you have trouble taking care of your child, family member or friend?: No Do you have trouble with day-to-day activities such as bathing, preparing meals, shopping, managing finances, etc.?: No Are you currently unemployed and looking for a job?: Yes Are you interested in more education?: I choose not to answer this question Please select the resources that you would like help with: None Currently or been in a relationship where the following occur: I choose not to answer THRIVE Score: 0 AUDIT C Alcohol Use Questionnaire (AUDIT-C) 1. How often do you have a drink containing alcohol?: Never 3. How often do you have six or more drinks on one occasion?: Never Total Score: 0 Score Reviewed/Action Taken: Yes HUNTER-7 AMB Questionnaire HUNTER-7 Date HUNTER - 7 assessed: 03/23/25 Feeling nervous, anxious, or on edge: 3 = Nearly every day Not being able to stop or control worryin = Nearly every day Worrying too much about different things: 3 = Nearly every day Trouble relaxin = More than half the days Being so restless that it is hard to sit still: 0 = Not at all Becoming easily annoyed or irritable: 3 = Nearly every day Feeling afraid as if something awful might happen: 3 = Nearly every day Total HUNTER-7 score (0-4 normal; 5-9 mild; 10-14 moderate; 15-21 severe): 17 Source: Developed by Drs. Kee Mcintyre, Kaleigh Tripp, Luis Guillen and colleagues, with an educational jere from [employer]. Review of Systems Const Denies chills, Denies fatigue, Denies fever(s) and Denies headache(s) ENT Denies dysphagia, Denies dizziness, Denies otalgia, Denies headache(s), Denies neck pain, Denies odynophagia and Denies sore throat Card Reports chest pain (more of discomfort/pressure usually in associated with her palpitations), Reports palpitations (on and off ) and Denies dyspnea Resp Denies chest congestion, Denies cough and Denies dyspnea GI Denies abdominal pain, Denies constipation, Denies dysphagia, Denies heartburn, Denies diarrhea, Denies nausea, Denies odynophagia and Denies vomiting Denies difficulty voiding, Denies nocturia, Denies dysuria and Denies urinary urgency Musc Denies back pain, Denies arthralgias and Denies neck pain Skin/Breast Denies rash Neuro Denies dizziness, Denies headache(s) and Denies paresthesias Psych Reports anxiety, Reports depression (on and off) and Denies suicidal ideation Endo Denies fatigue and Reports palpitations (on and off ) Manuel/Lymph Denies easy bruising Physical exam (Primary Care) Vital Signs: Last Vital Signs Pulse 66 03/23/25 10:22 BP 120/84 03/23/25 10:22 Pulse Ox 99 03/23/25 10:22 Oxygen Delivery Method Room Air 03/23/25 10:22 Tobacco/Smoking Status: Tobacco use Status Tobacco use date assessed 03/23/25 03/23/25 10:29 Patient Tobacco Use Status Never used Tobacco 03/23/25 10:29 Tobacco use type 07/06/23 09:18 e-Cigarette/Vaping Use Never Used 03/23/25 10:29 PHQ-9: PHQ-9 Score PHQ-9: Total score 12 03/23/25 10:39 Depression Screening Interpretation: Positive Depression Screening Follow-up: Existing condition, In treatment and Community Mental Health Worker F/U Thrive Assessment: Date of Thrive Assessment Date Thrive assessed 03/23/25 03/23/25 10:29 Currently or been in a relationship where the following occur: I choose not to answer Const General: no acute distress and alert HENMT Ears: TM's normal bilaterally and EAC's normal Throat: Yes posterior oropharynx normal and Yes tonsils normal (no TP congestion) Neck Neck: Yes supple and No lymphadenopathy Thyroid: Thyroid normal Resp Auscultation: clear to auscultation bilaterally, no crackles, no rales and no wheezes Cardio Rate: regular rate Rhythm: regular rhythm Heart sounds: no murmurs GI Palpation (GI): Soft to palpation and nontender Auscultation: normal bowel sounds General: Yes no CVA tenderness Back/Spine/Pelvis Back: no CVA tenderness Thoracic/Lumbar Spine: No lumbar spinal tenderness Skin Rashes: no rashes Extrem General: Yes no clubbing, cyanosis or edema Coding Level of Care Code Est Pt Level 4 (32290) Diagnoses Intermittent palpitations R00.2 Chest pain, unspecified type R07.9 Chest pain type: unspecified Dizziness R42 Mixed hyperlipidemia E78.2 Gastroesophageal reflux disease, unspecified whether esophagitis present K21.9 Esophagitis presence: esophagitis presence not specified Bipolar depression F31.9 Obesity (BMI 30-39.9) E66.9 Additional Codes PHQ-9 - 55673 - PHQ-9 Billing: Yes ([id number]) Assessment & Plan Assessment & Plan (1) Intermittent palpitations: Code(s): R00.2 - Palpitations Category: Medical Plan: Have reassured patient that her extended Holter monitoring done a couple of months ago came back normal Have advised patient that her symptoms are likely related to her increased anxiety / mood disorder, especially since she has not been on her medications this past year due to her previous psychiatrist/therapist's practice closing abruptly late last year Have also advised patient to avoid foods and drinks that contain too much caffeine (coffee in particular) so as not to trigger or aggravate her symptoms If her symptoms continue to recur, can consider starting her on a low-dose beta-jeff or refer her to cardiology for further evaluation and recommendations (2) Chest pain: Code(s): R07.9 - Chest pain, unspecified Category: Medical Qualifiers: Chest pain type: unspecified Qualified Code(s): R07.9 - Chest pain, unspecified Plan: Resolved- this may have been related to her recent complaints/symptoms of palpitations or could be related to her anxiety Patient had cardiac stress testing done a couple of years ago (2022) that came out normal (3) Dizziness: Code(s): R42 - Dizziness and giddiness Category: Medical Plan: Also mostly resolved - advised that these may be related to her increased stress and anxiety over the past year (4) Mixed hyperlipidemia: Code(s): E78.2 - Mixed hyperlipidemia Category: Medical Plan: Reinforced low cholesterol diet Her cholesterol levels were improved and much better when they were last checked in June 2024 (5) GERD (gastroesophageal reflux disease): Code(s): K21.9 - Gastro-esophageal reflux disease without esophagitis Category: Medical Qualifiers: Esophagitis presence: esophagitis presence not specified Qualified Code(s): K21.9 - Gastro-esophageal reflux disease without esophagitis Plan: Dietary restrictions reinforced Patient used to take Omeprazole 20 mg QD but has not needed to take Rx in quite some time now (6) Bipolar depression: Code(s): F31.9 - Bipolar disorder, unspecified Category: Medical Plan: Patient used to take Lamotrigine 400 mg Q AM and Clonazepam 1 mg 2 to 3 times a day as needed but is now only on Clonazepam 1 mg BID PRN She used to go to [facility] for psychiatry follow up but the practice closed down late last year and she is currently still trying to get established with a psychiatrist or psychiatric prescriber who accepts her health insurance Have advised patient that I will be happy to help her with her prescription until she is able to start seeing and get established with her new psychiatrist - will start her back for now on Lamotrigine at 200 mg QD and may increase this up to 400 mg daily after a month Will start her back as well on Aripiprazole 5 mg Q HS (7) Obesity (BMI 30-39.9): Code(s): E66.9 - Obesity, unspecified Category: Medical Plan: Reinforced diet/exercise as tolerated/lose weight Plan Follow up in 3 months Medications: Changed From aripiprazole 5 mg PO DAILY To aripiprazole 5 mg PO DAILY 30 tabs 0RF 30 days From lamotrigine 400 mg PO QAM To lamotrigine 200 mg PO QAM 30 tabs 0RF 30 days
== END 2025-03-23 11:08 | disposition home or self-care (01) ==
LOC: HO.HMCH 10:11
PROVIDERS: PCP Internal Medicine; Visit Provider Internal Medicine
DX: R00.2 Palpitations (principal); F31.9 Bipolar disorder, unspecified; R07.9 Chest pain, unspecified; R42 Dizziness and giddiness; E78.2 Mixed hyperlipidemia; K21.9 Gastro-esophageal reflux disease without esophagitis; E66.9 Obesity, unspecified

== ENCOUNTER → 2025-03-23 10:11 | Outpatient (BNVA) | payer OTHER, SELFPAY | PROVIDERS: PCP Internal Medicine; Visit Provider Internal Medicine | DX: R00.2 Palpitations (principal); R07.9 Chest pain, unspecified; R42 Dizziness and giddiness; E78.2 Mixed hyperlipidemia; K21.9 Gastro-esophageal reflux disease without esophagitis; F31.9 Bipolar disorder, unspecified; E66.9 Obesity, unspecified | CPT/HCPCS: 96127; 99212 ==